=== PATIENT | male | born 1955 | race Caucasian/White ===

== ENCOUNTER 2022-02-23 21:52 | Emergency (ER) | payer BC, SELFPAY ==
[2022-02-23 21:56] VITALS: BP 117/67; PULSE 147; RESP 20; TEMP 37.8; O2SAT 96; BMI 26.0
[2022-02-23 22:54] LABS: Lactate* 1.5 mmol/L (0.5-1.9)
[2022-02-23 22:55] LABS: Basophils Absolute Auto 0.01 K/uL (0.00-0.30); Basophils Percent Auto 0.1 % (0.0-3.0); Hematocrit 38.5 % (37.0-53.0); Lymphocytes Percent Auto 1.6 % (20-44); Mean Corpuscular HGB Conc 34 gm/dL (32-36); Mean Corpuscular Hemoglobin 30 pg (26-34); Mean Corpuscular Volume 90 fL (80-100); Monocytes Percent Auto 1.9 % (0.0-11.0); Platelet Count* 183 K/uL (140-440); Red Blood Count 4.27 m/uL (4.30-5.90); White Blood Count* 9.52 K/uL (4.50-11.00)
[2022-02-23 22:56] VITALS: RESP 18; TEMP 38.5; O2SAT 98
[2022-02-23 22:57] LABS: Slide Review Reflex No
[2022-02-23 23:08] LABS: Chloride* 100 mmol/L (96-114)
[2022-02-23 23:09] LABS: Albumin* 4.4 g/dL (3.3-5.0); Potassium* 4.4 mmol/L (3.6-5.1); Sodium* 135 mmol/L (135-149)
[2022-02-23 23:11] LABS: Creatinine* 1.1 mg/dL (0.5-1.5); Est. Creatinine Clearance* 67.84; Estimated Glomerular Filt Rate 75 ml/min
[2022-02-23 23:12] LABS: Alanine Aminotransferase* 19 U/L (4-50); Alkaline Phosphatase* 46 U/L (40-150); Aspartate Amino Transferase* 25 U/L (12-35); Bilirubin Direct* 0.2 mg/dL (0.0-0.5); Bilirubin Total* 1.3 mg/dL (0.1-1.5); Blood Urea Nitrogen* 27 mg/dL (7-30); Carbon Dioxide* 22 mmol/L (20-32); Glucose* 158 mg/dL (60-115); Total Protein* 6.8 g/dL (6.0-8.3)
[2022-02-23 23:15] LABS: C Reactive Protein* 2.6 mg/dL (0.5-1.0)
[2022-02-23] MEDS: 0.9 % SODIUM CHLORIDE 1000 ml 1,000 ML IV (23:15)
[2022-02-23 23:30] VITALS: BP 103/58; PULSE 113; RESP 18; O2SAT 98
[2022-02-23 23:36] LABS: Erythrocyte SedimentationRate* 7 mm/hr (2-15)
[2022-02-23 23:41] LABS: PCR FLU A Negative PCR FLU A (Negative); PCR FLU B Negative PCR FLU B (Negative); PCR RSV Negative PCR RSV (Negative)
[2022-02-23 23:46] LABS: SARS PCR* POSITIVE SARS-CoV-2 (Negative)
[2022-02-23 23:51] VITALS: TEMP 37.9
[2022-02-23 23:54] LABS: Appearance Urine Clear (Clear); Bilirubin Urine 1+ (Negative); Blood Urine Negative (Negative); Color Urine Yellow (Yellow); Glucose Urine Negative (Negative); Ketones Urine 1+ (Negative); Leukocyte Esterase Urine Negative (Negative); Nitrite Urine Negative (Negative); Protein Urine Negative (Negative); Specific Gravity Urine 1.025 (1.000-1.030); pH Urine 5.5 (5.0-8.5)
[2022-02-24] VITALS (71 sets, daily range): BP systolic 83–127; BP diastolic 39–75; PULSE 62–117; RESP 12–20; TEMP 37.2–37.5; O2SAT 95–98
[2022-02-24 00:02] LABS: Bacteria Urine Few; Mucus Urine Many; RBC Urine 0-2 (0-2); Squamous Epithelial Cell Urine Few (None-Few)
--- NOTE | 2022-02-24 01:11 | ED_ITS ---
HPI - General Adult General Date Seen: 02/24/22 Chief complaint: Fever Stated complaint: 105/106 temp Time Seen by Provider: 02/23/22 21:59 History of Present Illness HPI narrative: Patient is a 66-year-old male who is here with his , with a fairly complex history over the past month and half for so. He says he was in [place] originally, he was elk hunting. He developed gross hematuria, was seen somewhere in [place], started on Cipro for urinary tract infection. Some point after that he received a call saying that the Cipro was not the right antibiotic, and he was switched to Bactrim. He believes he took Bactrim from January 27 to February 06. He had a catheter at 1 point, continued to have gross hematuria on and off. He says he had fevers on and off throughout early January as well. He did see urology in [place], he had what sounds like a CT scan with contrast and he says that he was told he had evidence that the urinary tract infection had affected his kidneys. It sounds as if the urologist was suggesting that he treat for prostatitis, as he told him he should take 30 additional days of the Bactrim. Patient tells me that he took the 10 days of Bactrim, had been given a prescription from the urologist to refill it but had not done so. It sounds as if since returning to [place] over the past couple weeks, he has felt fine. He has not had further hematuria, has not had any fevers, has not had any urinary symptoms. He says he never had any abdominal or flank pain, perineal pain, but he did initially have some dysuria. He did not at any point have workup for any other possible causes of fever. He does say that he had COVID diagnosed on January 31, but denies having any other respiratory symptoms such as cough or shortness of breath. He has not had upper respiratory symptoms such as congestion or sore throat. He denies any unusual rashes. He has not had chest pain. Today, he says that his had suggested that he start back on the Bactrim, so he took a dose at 2:30 a.m.. He says by 330, he had started to feel very poorly, with general malaise and fatigue. His thought he felt very hot so she checked his temperature later on and she says that at home his temperature was 105?. They drove here and we got a temperature of a 100.1?. He has not developed any abdominal or flank pain, does not have dysuria. He does not have any respiratory symptoms at this time. He denies headache, sore throat, or other upper respiratory symptoms. He really is without complaints aside from fatigue and malaise. When asked, he does note that his skin is quite red. He does not complain of pain on his skin. Again when asked, there is a small area where he felt like he might be getting a cold sore on his right lateral lower lip, but he also had a recent dental work, and thought it was a place where the dental tool had been pressing on his lip. He does not have any other intraoral or lip lesions. He does note that his eyes are red, but they are not otherwise painful. He has a history of diabetes and hypertension, he recently ran out of his losartan. He does not smoke, denies significant alcohol use. Related Data Allergies Allergy/AdvReac Type Severity Reaction Status Date / Time Cephalosporins Allergy Mild Anaphylaxis Verified 02/23/22 23:24 Penicillins Allergy Mild Anaphylaxis Verified 02/23/22 23:24 Sulfa (Sulfonamide AdvReac Mild Fatigued Verified 02/23/22 23:24 Antibiotics) omnicef Allergy Mild Anaphylaxis Uncoded 02/23/22 22:04 Review of Systems Status of ROS: Reports: 10 or more systems reviewed and unremarkable except as noted in History and below [facility] Social History Smoking Status: Unknown if ever smoked Exam Narrative: Exam Narrative: Vital signs as noted above. In general, an alert, nontoxic male. Looks fatigued. Head: Normocephalic, atraumatic. Eyes: Pupils are equal reactive. Extraocular movements are full. Conjunctivae are injected. No purulence. ENT: Mucous membranes are moist. Throat is normal. I do not see any intraoral blisters or other lesions. On the right lateral lower lip he has Neck: Supple without lymphadenopathy. Heart: Regular rate and rhythm. No murmur or rub. Lungs: Clear bilaterally. No increased work of breathing, crackles or wheezes. Abdomen: Soft and nontender. No organomegaly. Extremities: Well perfused. No edema. No calf tenderness. Pulses intact. Neurologic: Patient is alert and oriented to person and place. Speech is fluent. Face is symmetric. Moves all extremities equally. Affect: Normal. Skin: Warm and dry. Well perfused. Const: Vital Signs, click to edit/add: Vital Signs - 24 hr 02/23/22 21:56 02/23/22 23:51 02/23/22 22:56 Temperature 100.1 F H 100.3 F H 101.3 F H Pulse Rate [Left P ulse Oximeter] 147 H Respiratory Rate 20 18 Blood Pressure [Ri ght Upper Arm] 117/67 Pulse Oximetry 96 98 Oxygen Delivery Me thod Room Air Room Air Documenting provider has reviewed patient's vital signs: yes Course Course Hospital Course: Following initial evaluation, we placed an IV and started a L of normal saline. Was initially very tachycardic and this improved with fluids. An EKG done following his 1 L showed a sinus tachycardia with a ventricular rate of 180 beats per minute. No acute ST segment changes. His labs overall looked good. His white blood cell count is 9.5, hemoglobin 13. Platelets normal. Sed rate was normal, CRP minimally elevated at 2.6. LFTs normal, blood sugar 158. Metabolic panel was entirely normal. Urinalysis was negative, he had 0-2 red cells and 2-5 white cells. He had 1+ bilirubin is urine but I think that was due to ketosis. No bilirubin in the serum. He did have a positive COVID test, but again had COVID diagnosed January 31 of this is likely a persistent positive rather than a new diagnosis. Influenza and RSV were negative. Overall, labs do not suggest a likely diagnosis of acute infection, bacterial or viral as a cause for his acute onset of fever and fatigue today. The timing of this, along with his diffuse erythema, I think strongly suggest a drug reaction as the cause of his symptoms. He does not have any blistering or clear mucocutaneous involvement at this point, but I am concerned about possible prodromal [place] syndrome. I did speak briefly with Dr. Combs, who was on-call for the burn unit at [facility]. He felt that at this point, with good clear discharge instructions, that it was reasonable to discharge him home. If at any point he develops more skin blistering or sloughing, or develops lesions on his lips or inside his mouth, he would need to seen right away. I have discussed all this with the patient and his , and I have also discussed with them that at that point I would make sure to go to a center that has a burn unit as given how significant the skin problems can be with this disorder if it is in fact [place], I think he would be better served at a bigger center. I am going to give him a 2 L of normal saline as he remains somewhat tachycardic and blood pressures have persisted around 100 systolic. Assuming his vital signs are improved, I think we will send him home on a steroid burst per [facility] recommendations. Assuming skin findings are stable, primary care follow-up in a couple of days for recheck. I think he likely should be on an antibiotic for his prostatitis, but I am not sure what the next choice would be given that Cipro and Bactrim are not good options at this point. So I would like them to discuss that with Urology. Right now, I am hesitant to add another antibiotic to the mix. If the skin findings are stable but he is simply feeling poorly from the standpoint of weakness, fevers, vomiting, or other worsening, return at any time to the emergency department here. Vital Signs Vital signs: Initial Vital Signs Temperature 100.1 F H 02/23/22 21:56 Temperature Source Temporal Artery Scan 02/23/22 21:56 Pulse Rate 147 H 02/23/22 21:56 Pulse Rhythm 02/23/22 21:56 Respiratory Rate 20 02/23/22 21:56 Blood Pressure 117/67 02/23/22 21:56 Blood Pressure Mean 83 02/23/22 21:56 Pulse Oximetry 96 02/23/22 21:56 Oxygen Delivery Method 02/23/22 21:56 Vital Signs Temperature 100.1 F H 02/23/22 21:56 Pulse Rate 147 H 02/23/22 21:56 Respiratory Rate 20 02/23/22 21:56 Blood Pressure 117/67 02/23/22 21:56 Pulse Oximetry 96 02/23/22 21:56 Oxygen Delivery Method 02/23/22 21:56 Temperature 100.3 F H 02/23/22 23:51 Pulse Rate 147 H 02/23/22 21:56 Respiratory Rate 18 02/23/22 22:56 Blood Pressure 117/67 02/23/22 21:56 Pulse Oximetry 98 02/23/22 22:56 Oxygen Delivery Method 02/23/22 22:56 Medical Decision Making Lab Data Labs: Lab Results 02/23/22 02/23/22 02/23/22 Range/Units 22:20 22:20 22:20 WBC 9.52 (4.50-11.00) K/uL RBC 4.27 L (4.30-5.90) m/uL Hgb 13.0 L (13.5-17.5) gm/dL Hct 38.5 (37.0-53.0) % MCV 90 (80-100) fL MCH 30 (26-34) pg MCHC 34 (32-36) gm/dL RDW Coeff of Juan Ramon 13.0 (11.5-15.5) % Plt Count 183 (140-440) K/uL Neut % (Auto) 96.0 H (42.0-72.0) % Lymph % (Auto) 1.6 L (20-44) % [place] % (Auto) 1.9 (0.0-11.0) % Eos % (Auto) 0.0 (0.0-7.0) % Baso % (Auto) 0.1 (0.0-3.0) % Neut # (Auto) 9.10 H (1.7-7.0) K/uL Lymph # (Auto) 0.20 L (0.90-2.90) K/uL [place] # (Auto) 0.20 (0.00-0.90) K/UL Eos # (Auto) 0.00 (0.00-0.50) K/uL Baso # (Auto) 0.01 (0.00-0.30) K/uL Abs Immat Gran (auto) 0.04 (0.00-0.30) K/uL ESR 7 (2-15) mm/hr Sodium 135 (135-149) mmol/L Potassium 4.4 (3.6-5.1) mmol/L Chloride 100 (96-114) mmol/L Carbon Dioxide 22 (20-32) mmol/L BUN 27 (7-30) mg/dL Creatinine 1.1 (0.5-1.5) mg/dL Estimated Creat Clear 67.84 Estimated GFR 75 ml/min Glucose 158 H (60-115) mg/dL Lactate (0.5-1.9) mmol/L Calcium 10.0 (8.4-10.6) mg/dL Total Bilirubin 1.3 (0.1-1.5) mg/dL Direct Bilirubin 0.2 (0.0-0.5) mg/dL AST 25 (12-35) U/L ALT 19 (4-50) U/L Alkaline Phosphatase 46 (40-150) U/L C-Reactive Protein 2.6 H (0.5-1.0) mg/dL Total Protein 6.8 (6.0-8.3) g/dL Albumin 4.4 (3.3-5.0) g/dL Urine Color (Yellow) Urine Appearance (Clear) Urine pH (5.0-8.5) Ur Specific [place] (1.000-1.030) Urine Protein (Negative) Urine Glucose (UA) (Negative) Urine Ketones (Negative) Urine Blood (Negative) Urine Nitrite (Negative) Urine Bilirubin (Negative) Urine Urobilinogen (0.2-1.0) Ur Leukocyte Esterase (Negative) Urine RBC (0-2) Urine WBC (0-5) Ur Squamous Epith Cells (None-Few) Urine Bacteria (None) Urine Mucus (None) SARS-CoV-2 (PCR) (Negative) Influenza Type A (PCR) (Negative) Influenza Type B (PCR) (Negative) RSV (PCR) (Negative) 02/23/22 02/23/22 02/23/22 Range/Units 22:20 22:50 22:50 WBC (4.50-11.00) K/uL RBC (4.30-5.90) m/uL Hgb (13.5-17.5) gm/dL Hct (37.0-53.0) % MCV (80-100) fL MCH (26-34) pg MCHC (32-36) gm/dL RDW Coeff of Juan Ramon (11.5-15.5) % Plt Count (140-440) K/uL Neut % (Auto) (42.0-72.0) % Lymph % (Auto) (20-44) % [place] % (Auto) (0.0-11.0) % Eos % (Auto) (0.0-7.0) % Baso % (Auto) (0.0-3.0) % Neut # (Auto) (1.7-7.0) K/uL Lymph # (Auto) (0.90-2.90) K/uL [place] # (Auto) (0.00-0.90) K/UL Eos # (Auto) (0.00-0.50) K/uL Baso # (Auto) (0.00-0.30) K/uL Abs Immat Gran (auto) (0.00-0.30) K/uL ESR (2-15) mm/hr Sodium (135-149) mmol/L Potassium (3.6-5.1) mmol/L Chloride (96-114) mmol/L Carbon Dioxide (20-32) mmol/L BUN (7-30) mg/dL Creatinine (0.5-1.5) mg/dL Estimated Creat Clear Estimated GFR ml/min Glucose (60-115) mg/dL Lactate 1.5 (0.5-1.9) mmol/L Calcium (8.4-10.6) mg/dL Total Bilirubin (0.1-1.5) mg/dL Direct Bilirubin (0.0-0.5) mg/dL AST (12-35) U/L ALT (4-50) U/L Alkaline Phosphatase (40-150) U/L C-Reactive Protein (0.5-1.0) mg/dL Total Protein (6.0-8.3) g/dL Albumin (3.3-5.0) g/dL Urine Color Yellow (Yellow) Urine Appearance Clear (Clear) Urine pH 5.5 (5.0-8.5) Ur Specific [place] 1.025 (1.000-1.030) Urine Protein Negative (Negative) Urine Glucose (UA) Negative (Negative) Urine Ketones 1+ A (Negative) Urine Blood Negative (Negative) Urine Nitrite Negative (Negative) Urine Bilirubin 1+ A (Negative) Urine Urobilinogen 1.0 (0.2-1.0) Ur Leukocyte Esterase Negative (Negative) Urine RBC 0-2 (0-2) Urine WBC 2-5 (0-5) Ur Squamous Epith Cells Few (None-Few) Urine Bacteria Few A (None) Urine Mucus Many A (None) SARS-CoV-2 (PCR) POSITIVE SARS-CoV-2 A (Negative) Influenza Type A (PCR) Negative PCR FLU A (Negative) Influenza Type B (PCR) Negative PCR FLU B (Negative) RSV (PCR) Negative PCR RSV (Negative) Discharge Plan Discharge Follow Up/Referrals: Zacarias Jose MD [Primary Care Provider] -
[2022-02-24] MEDS: 0.9 % SODIUM CHLORIDE 1000 ml 1,000 ML IV (01:12)
--- NOTE | 2022-02-24 02:31 | CRLHL7_ITS ---
For Patients: As a result of the Cures Act, medical imaging exams and procedure reports are released immediately into your electronic medical record. You may view this report before your referring provider. If you have questions, please contact your health care provider. INDICATION: Fever. COVID. COMPARISON: None TECHNIQUE: Single view of the chest was acquired FINDINGS: TUBES AND LINES: None. HEART AND MEDIASTINUM: The heart size is normal. The mediastinal contour appears normal for patient age. LUNGS AND PLEURAL SPACES: The lungs appear normal.The pleural spaces are unremarkable. OSSEOUS STRUCTURES: Age-appropriate appearance. No acute focal finding. IMPRESSION: No evidence of active pulmonary disease. Dictated by Aj Steinberg MD @ 02/24/2022 3:52:05 AM (Electronically Signed)
[2022-02-24 02:40] LABS: Immature Granulocytes Pct Auto 0.4 %
[2022-02-24] MEDS: LACTATED RINGERS 1000 ML 1,000 ML IV (02:51)
[2022-02-24] MEDS: predniSONE 20 MG TABLET PO (02:52)
[2022-02-24 03:09] LABS: SARS Antigen* negative (Negative)
--- NOTE | 2022-02-24 03:09 | CRLHL7_ITS ---
For Patients: As a result of the 21st Century Cures Act, medical imaging exams and procedure reports are released immediately into your electronic medical record. You may view this report before your referring provider. If you have questions, please contact your health care provider. INDICATION: Fever and hypotension of uncertain etiology. COMPARISON: None TECHNIQUE: CT examination of the chest, abdomen and pelvis was performed following the uneventful intravenous administration of 86 cc of Isovue 370. Thin section axial images were obtained from the thoracic inlet through the pubic symphysis. Oral contrast was not administered. Sagittal and coronal reformatted imaging was performed Please note that all CT scans at this facility use dose modulation, iterative reconstruction, and/or weight-based dosing when appropriate to reduce radiation dose to as low as reasonably achievable. FINDINGS: CHEST: Heart size normal. No mediastinal or hilar adenopathy or mass. Atherosclerotic calcifications associated with the heart. Very small hiatal hernia. No significant pericardial fluid Scant basilar atelectasis. Lungs and pleural spaces otherwise unremarkable. ABDOMEN AND PELVIS: LIVER/BILIARY SYSTEM:Hepatic steatosis. No focal mass or biliary ductal dilatation.Cholelithiasis without findings of acute cholecystitis or common duct obstruction ADRENALS: Normal KIDNEYS, URETERS and BLADDER:The kidneys are normal in size. A few small low-density lesions are noted that are too small to characterize but likely benign. No obstructive uropathy at the level of the ureters. The prostate is markedly enlarged. Follow up evaluation of the prostate is advised. Mild distention of the bladder. SPLEEN:Normal appearance. PANCREAS: Appears normal. RETROPERITONEUM and MESENTERY: There is no mass, adenopathy or aortic aneurysm. GASTROINTESTINAL SYSTEM: There is no evidence of diverticulitis, colitis, mechanical obstruction, or appendicitis. The small bowel as visualized appears normal.Diffuse colonic fecal retention. Scattered diverticulosis. No visible acute inflammatory process involving the bowel. PELVIS: No mass, adenopathy or free fluid. OSSEOUS STRUCTURES and ABDOMINAL WALL: There is an age-appropriate appearance of the osseous structures.There is small fat containing umbilical region hernia is OTHER: No free fluid or free air. IMPRESSION: 1. CHEST: No visible cause for hypotension and fever or common duct obstruction. Other incidental nonacute appearing findings as above. Please review the comment regarding those findings no visible cause for hypotension and fever 3. OSSEOUS STRUCTURES: No destructive process of bone Please note that all CT scans at this facility use dose modulation, iterative reconstruction, and/or weight-based dosing when appropriate to reduce radiation dose to as low as reasonably achievable. Dictated by Aj Steinberg MD @ 02/24/2022 8:52:11 AM (Electronically Signed)
[2022-02-24 03:48] LABS: Lactate* 0.7 mmol/L (0.5-1.9)
[2022-02-24] MEDS: 0.9 % SODIUM CH + KCL 20 mEq/L 1,000 ML 125 ML IV (05:15)
--- NOTE | 2022-02-24 05:52 | ED.NURSE ---
Norepi infusion paused in order to assess pt's HR/BP, per Bubba BORDEN direction.
[2022-02-24] MEDS: CIPROFLOXACIN 400 MG/200 ML inj IVPB (06:25)
--- NOTE | 2022-02-24 06:31 | ED.NURSE ---
Norepi drip resumed at 0.1 mcg/kg/min.
--- NOTE | 2022-02-24 07:23 | ED.NURSE ---
Handoff report given to ARELIS Lee at [facility] ([phone]). Pt to be transferred to [place] ICU room [id number]. Dispatch called, stating an ETA of 20 minutes for pt transfer.
[2022-02-24] MEDS: metroNIDAZOLE 500 MG/100 ML PIGGYBACK IVPB (07:46)
--- NOTE | 2022-02-24 08:05 | PC.NURSE ---
EMS here to transfer, attempted to call glendy Haro and no answer, spoke to ANW and they are aware pt is en route now
== END 2022-02-24 08:07 | disposition short-term general hospital (02) ==
PROVIDERS: Family Medicine; Emergency Provider Emergency Medicine; PCP Surgery
DX: T36.95XA Adverse effect of unspecified systemic antibiotic, initial encounter (principal); R21 Rash and other nonspecific skin eruption; R65.21 Severe sepsis with septic shock
CPT/HCPCS: 36415; 71045; 71260; 74177; 80048; 80076; 81001; 83605; 84145; 85025; 85651; 86140; 87040; 87086; 87426; 87502; 87634; 87635; 93005; 96365; 96366; 99285; 99291; J0744; J3370; J7030; J7050; J7120; J7512; Q9967; S0030

== ENCOUNTER 2022-02-24 08:01 | Outpatient (CLI) | payer BC, SELFPAY | END 2022-02-24 08:02 | disposition home or self-care (01) | LOC: AMB 03-17 10:25 | PROVIDERS: PCP Surgery; Visit Provider Family Medicine | DX: A41.9 Sepsis, unspecified organism (principal); R50.9 Fever, unspecified | CPT/HCPCS: A0425; A0426 ==